=== PATIENT | female | born 1965 | race Two or more races ===

== ENCOUNTER 2025-07-02 22:32 | Emergency (ER) | payer SELFPAY ==
--- NOTE | ~2025-07-02 | XR_ITS ---
Examination: XR chest 1V portable Clinical History: chest pain Comparison: None Technique: Portable AP Findings: Slightly rotated. Heart size normal. Increased interstitial markings right lung. Lungs otherwise clear. No acute bony abnormality. IMPRESSION: 1. Unilateral right lung edema and/or pneumonitis versus merely soft tissue artifact from rotation. Can consider PA and lateral films with deep inspiration. Reviewed, dictated and finalized at location R. ENTATION MANAGER IMPRESSION: 1. Unilateral right lung edema and/or pneumonitis versus merely soft tissue ar tifact from rotation. Can consider PA and lateral films with deep inspiration.
[2025-07-02 22:29] VITALS: BP 153/94; PULSE 86; RESP 18; TEMP 37.1; O2SAT 100
--- NOTE | 2025-07-02 22:30 | PC.NURSE ---
ASA 324 mg given by EMS
--- NOTE | 2025-07-02 22:36 | ECG_ITS ---
Test Date: 2025-07-02 22:42:55 Measurements Intervals [place] Rate: 82 P: 37 DE: 161 QRS: -22 QRSD: 88 T: -9 QT: 354 QTc: 415 Interpretive Statements SINUS RHYTHM POSSIBLE LEFT ATRIAL ENLARGEMENT [-0.1mV P WAVE IN V1/V2] BORDERLINE LEFT AXIS DEVIATION [QRS AXIS < -20] VOLTAGE EVIDENCE OF LEFT VENTRICULAR HYPERTROPHY ABNORMAL ECG No previous ECG available for comparison Electronically Signed On 07-03-2025 07:43:57 COMMUNITY HEALTH ADVISOR by Volodymyr Cordova M.D.
[2025-07-02 23:09] LABS: Hematocrit 37.1 % (37.0-47.0); Hemoglobin 11.7 g/dL (12.0-15.0); Immature Granulocyte Percent A 0.3 % (0-0.5); Lymphocytes Absolute Auto 2.72 K/mm3 (0.9-3.2); Mean Corpuscular HGB Conc 31.5 g/dl (32-36); Mean Corpuscular Hemoglobin 26.7 pg (26-34); Mean Corpuscular Volume 84.5 fl (80-100); Nucleated Red Blood Cells Absolute Auto 0.000 K/mm3 (0.0-0.012); Nucleated Red Blood Cells Perc 0.0 % (0.0-0.2); Platelet Count Result 289 k/mm3 (150-375); Red Blood Count 4.39 M/mm3 (4.2-5.4); White Blood Count 7.3 K/mm3 (4.5-10.0)
[2025-07-02 23:21] LABS: INR 0.9; Prothrombin Time 11.9 Seconds (11.1-14.7)
[2025-07-02 23:22] LABS: Partial Thromboplastin Time 27.9 Seconds (22.3-36.8)
[2025-07-02 23:23] LABS: Alanine Aminotransferase 22 U/L (6-35); Albumin Level 4.4 g/dL (3.5-5.1); Alkaline Phosphatase 81 U/L (38-126); Anion Gap 7 mmol/L (4-12); Aspartate Amino Transferase 30 U/L (14-36); Bilirubin,Total 0.6 mg/dL (0.2-1.3); Blood Urea Nitrogen 12 mg/dL (7-17); Calcium 9.1 mg/dL (8.4-10.2); Carbon Dioxide 28 mmol/L (22-30); Chloride 104 mmol/L (98-107); Estimated Glomerular Filt Rate > 60; Glucose 160 mg/dL (65-110); Lipase 74 U/L (23-300); Potassium 4.0 mmol/L (3.4-5.0); Sodium 139 mmol/L (137-145); Total Protein 8.1 g/dL (6.3-8.2)
[2025-07-02 23:33] LABS: Troponin I < 0.012 ng/mL (0.000-0.034)
--- NOTE | 2025-07-03 00:12 | ED_ITS ---
HPI - General Adult General Chief complaint: Chest Pain Stated complaint: chest pain Time Seen by Provider: 07/02/25 23:01 History of Present Illness HPI narrative: Patient 60-year-old female who presents emergency department chief complaint of chest pain. Patient reports that she [place] [facility] [place] patient has had stroke before in the past arm reports that she also had a mild heart attack patient states this evening she started having some heaviness in her chest the patient states he is hearing better at this point reports that she was very worried and became very anxious Related Data Allergies Allergy/AdvReac Type Severity Reaction Status Date / Time No Known Allergies Allergy Verified 07/02/25 23:40 Review of Systems 2 Review of Systems: A 10 system review of systems was completed on the patient and is negative except for what is stated in the HPI. Nursing and ancillary documentation was reviewed. Exam 2 Narrative: GENERAL: Well-appearing, well-nourished, and in no acute distress. HEAD: Normocephalic, atraumatic. EYES: PERRLA and EOMI. ENT: Nares clear, no rhinorrhea or epistaxis. Mucous membranes moist. NECK: Supple. CHEST: Clear to auscultation. No respiratory distress. HEART: Regular rate and rhythm. No murmur heard. Normal peripheral pulses. ABDOMEN: Soft, nontender, nondistended, normal active bowel sounds. EXTREMITIES: Normal range of motion. No edema. SKIN: Warm, dry, no rash. NEURO: No focal deficits. Alert and oriented x3. PSYCH: Normal mood and affect. Course Vital Signs Vital signs: Vital Signs Temperature 37.1 C 07/02/25 22:29 Pulse Rate 86 07/02/25 22:29 Respiratory Rate 18 07/02/25 22:29 Blood Pressure 153/94 H 07/02/25 22:29 Pulse Oximetry 100 07/02/25 22:29 Oxygen Delivery Room Air 07/02/25 22:29 Temperature 37.1 C 07/02/25 22:29 Pulse Rate 86 07/02/25 22:29 Respiratory Rate 18 07/02/25 22:29 Blood Pressure 153/94 H 07/02/25 22:29 Pulse Oximetry 100 07/02/25 22:29 Oxygen Delivery Room Air 07/02/25 22:29 Medical Decision Making [facility] Narrative Medical decision making narrative: Facial diagnosis includes ACS noncardiac chest pain atypical chest pain EKG showed no acute ischemic changes Initial troponin was negative D-dimer was obtained as the patient had had a recent long flight this was negative 3 hour troponin was negative as well Patient is currently asymptomatic patient be discharged home follow-up with outpatient Vital Signs Vital Signs: Vital Signs Temperature 37.1 C 07/02/25 22:29 Pulse Rate 86 07/02/25 22:29 Respiratory Rate 18 07/02/25 22:29 Blood Pressure 153/94 H 07/02/25 22:29 Pulse Oximetry 100 07/02/25 22:29 Oxygen Delivery Room Air 07/02/25 22:29 Temperature 37.1 C 07/02/25 22:29 Pulse Rate 86 07/02/25 22:29 Respiratory Rate 18 07/02/25 22:29 Blood Pressure 153/94 H 07/02/25 22:29 Pulse Oximetry 100 07/02/25 22:29 Oxygen Delivery Room Air 07/02/25 22:29 Lab Data 07/02/25 23:00 07/02/25 23:00 Labs: Lab Results 07/02/25 07/03/25 Range/Units 23:00 01:27 WBC 7.3 (4.5-10.0) K/mm3 RBC 4.39 (4.2-5.4) M/mm3 Hgb 11.7 L (12.0-15.0) g/dL Hct 37.1 (37.0-47.0) % MCV 84.5 (80-100) fl MCH 26.7 (26-34) pg MCHC 31.5 L (32-36) g/dl RDW 14.4 (11.5-14.5) % Plt Count 289 (150-375) k/mm3 MPV 9.7 (7.4-10.4) fl Immature Gran % (Auto) 0.3 (0-0.5) % Neut % (Auto) 50.0 (45.5-73.1) % Lymph % (Auto) 37.2 (18.3-44.2) % [place] % (Auto) 8.1 (2.6-8.5) % Eos % (Auto) 4.1 (0-4.4) % Baso % (Auto) 0.3 (0.2-1.2) % Lymph # (Auto) 2.72 (0.9-3.2) K/mm3 [place] # (Auto) 0.6 (0.1-0.6) K/mm3 Eos # (Auto) 0.3 (0-0.3) K/mm3 Baso # (Auto) 0.0 (0.0-0.1) K/mm3 Abs Immat Gran (auto) 0.02 (0.00-0.031) K/mm3 Absolute Neuts (auto) 3.7 (1.3-6.7) K/mm3 Absolute Nucleated RBC 0.000 (0.0-0.012) K/mm3 Nucleated RBC % 0.0 (0.0-0.2) % PT 11.9 (11.1-14.7) Seconds INR 0.9 APTT 27.9 (22.3-36.8) Seconds D-Dimer < 0.27 (<0.48) ug/mL Sodium 139 (137-145) mmol/L Potassium 4.0 (3.4-5.0) mmol/L Chloride 104 (98-107) mmol/L Carbon Dioxide 28 (22-30) mmol/L Anion Gap 7 (4-12) mmol/L BUN 12 (7-17) mg/dL Creatinine 0.63 L (0.7-1.0) mg/dL Estim Creat Clear Calc Not Reportable Estimated GFR > 60 (59 - ) Glucose 160 H (65-110) mg/dL Calcium 9.1 (8.4-10.2) mg/dL Total Bilirubin 0.6 (0.2-1.3) mg/dL AST 30 (14-36) U/L ALT 22 (6-35) U/L Alkaline Phosphatase 81 (38-126) U/L Troponin I < 0.012 < 0.012 (0.000-0.034) ng/mL Total Protein 8.1 (6.3-8.2) g/dL Albumin 4.4 (3.5-5.1) g/dL Lipase 74 (23-300) U/L Discharge Plan Discharge Clinical Impression: Atypical chest pain Patient Disposition: Home Condition: Stable Instructions: Antibiotic Form, Chest Pain (ED) Patient Language: Greenlandic Follow-up/Referrals: Teddy Pacheco MD [Physician, Family Practice] UNKNOWN,DOCTOR [Primary Care Provider] Time of Disposition: 02:14
[2025-07-03 01:56] LABS: Troponin I < 0.012 ng/mL (0.000-0.034)
== END 2025-07-03 03:39 | disposition home or self-care (01) ==
PROVIDERS: Student in an Organized Health Care Education/Training Program; Emergency Provider Emergency Medicine
DX: R07.89 Other chest pain (principal); R94.31 Abnormal electrocardiogram [ECG] [EKG]
CPT/HCPCS: 36415; 71045; 80053; 83690; 84484; 85025; 85380; 85610; 85730; 93005; 99284